=== PATIENT | female | born 1950 | race Caucasian/White ===

== ENCOUNTER → 2024-02-29 13:26 | Outpatient (REF) | payer MEDICARE, OTHER, SELFPAY | LOC: WDC 13:26 | PROVIDERS: ATTENDING PHYSICIAN Family Medicine | DX: Z12.31 Encounter for screening mammogram for malignant neoplasm of breast (principal) | CPT/HCPCS: 77063; 77067 ==

== ENCOUNTER → 2025-03-01 12:35 | Outpatient (REF) | payer MEDICARE, OTHER, SELFPAY | LOC: WDC 12:35 | PROVIDERS: ATTENDING PHYSICIAN Family Medicine | DX: Z12.31 Encounter for screening mammogram for malignant neoplasm of breast (principal) | CPT/HCPCS: 77063; 77067 ==

== ENCOUNTER 2025-08-15 22:12 | Emergency (ER) | payer MEDICARE, OTHER, SELFPAY ==
[2025-08-15 22:15] VITALS: BP 179/91
== END 2025-08-16 03:41 ==
LOC: EMR 22:12
PROVIDERS: FAMILY PHYSICIAN Family Medicine
DX: S00.33XA Contusion of nose, initial encounter (principal); W22.09XA Striking against other stationary object, initial encounter; R22.0 Localized swelling, mass and lump, head
CPT/HCPCS: 70450; 70486